=== PATIENT | male | born 1995 | race Hispanic/Latino ===

== ENCOUNTER 2022-05-13 00:51 | Emergency (ER) ==
[2022-05-13] MEDS ORDERED: diphenhydrAMINE 25 MG CAP ONE (01:37)
[2022-05-13] MEDS ORDERED: predniSONE 20 MG TAB ONE (03:41)
[2022-05-13] MEDS ORDERED: Famotidine 20 MG TAB ONE (03:41)
== END 2022-05-13 03:55 | disposition home or self-care (01) ==
LOC: ERS 00:51
DX: T63.421A Toxic effect of venom of ants, accidental (unintentional), initial encounter (principal); L50.9 Urticaria, unspecified
CPT/HCPCS: 99283; J7512